=== PATIENT | female | born 1990 | race Caucasian/White ===

== ENCOUNTER 2021-05-23 07:38 | Emergency (ER) | payer OTHER ==
[~2021-05-23] VITALS: Ht 160 cm; Wt 75.0 kg
[2021-05-23 07:50] VITALS: BP 162/104
[2021-05-23] MEDS ORDERED: dexamethasone 4mg tablet PO ONE (08:20)
[2021-05-23] MEDS ORDERED: clindamycin 150mg capsule PO ONE (08:20)
[2021-05-23] MEDS ORDERED: ketorolac trometh inj. 60 MG/2 ML VIAL IM ONE (08:20)
[2021-05-23] MEDS ORDERED: CLIN300C17 PO (09:33)
== END 2021-05-23 09:47 | disposition home or self-care (01) ==
LOC: ER 07:39
DX: J02.9 Acute pharyngitis, unspecified (principal); Z72.89 Other problems related to lifestyle; Z88.0 Allergy status to penicillin; Z79.2 Long term (current) use of antibiotics
CPT/HCPCS: 87081; 87880; 96372; 99283; J1885

== ENCOUNTER 2022-09-07 21:51 | Emergency (ER) | payer SELFPAY ==
[~2022-09-07] VITALS: Ht 160 cm; Wt 66.8 kg
[~2022-09-07 21:51] MED LIST: CLIN300C17 PO
[2022-09-07 22:08] LABS: URINE HCG NEGATIVE (NEG)
[2022-09-07 22:11] LABS: CLARITY,URINE SLIGHTLY CLOUDY (Clear); GLUCOSE, URINE NEGATIVE (Neg); KETONES,URINE NEGATIVE (Neg); LEUKOCYTE ESTERASE ,URINE MODERATE (Neg); NITRITES, URINE POSITIVE (Neg); OCCULT BLOOD,URINE MODERATE (Neg); PROTEIN,URINE 100 mg/dl (Neg); UROBILINOGEN,URINE 0.2 E.U/dL (0.2-1.0)
[2022-09-07 22:13] LABS: COLOR,URINE DARK YELLOW (Yellow); UA COLLECTION TYPE CLN CATCH MIDSTREAM
[2022-09-07] MEDS ORDERED: ketorolac tromethamine 15mg/ml inj. IV ONE (22:15)
[2022-09-07] MEDS ORDERED: morphine 4 MG/ML inj SYRINge IV ONE (22:15)
[2022-09-07] MEDS ORDERED: ondansetron/PF 4mg/2ml inj IV ONE (22:15)
[2022-09-07 22:18] LABS: WBC,URINE 30-50 /HPF (0-4)
[2022-09-07 22:19] LABS: RBC,URINE 20-50 /HPF (0-2)
[2022-09-07 22:20] LABS: BACTERIA,URINE 2+ /HPF (Neg); MUCUS STRANDS FEW /LPF (Neg); SQUAMOUS EPITHELIAL CELL,UR FEW /LPF (FEW); TRANSITIONAL EPI CELLS,URINE FEW /HPF; WBC CLUMPS,URINE MODERATE /HPF (NEGATIVE)
[2022-09-07 22:24] LABS: BASOPHILS % (AUTO) 0.4 % (0-1); EOSINOPHILS # (AUTO) 0.1 X10'3 (0-0.9); EOSINOPHILS % (AUTO) 1.1 % (0-6); HEMATOCRIT 33.3 % (35.0-45.0); HEMOGLOBIN 10.8 g/dl (12.0-16.0); LYMPHOCYTES # (AUTO) 2.4 X10'3 (1.1-4.8); LYMPHOCYTES % (AUTO) 29.4 % (21-51); MEAN CORPUSCULAR HEMOGLOBIN 25.7 PG (27.0-31.0); MEAN CORPUSCULAR HGB CONC 32.3 g/dL (33.0-36.5); MEAN CORPUSCULAR VOLUME 79.4 FL (78-98); MEAN PLATELET VOLUME 5.9 FL (7.4-10.4); MONOCYTES # (AUTO) 0.6 X10'3 (0-0.9); MONOCYTES % (AUTO) 7.3 % (2-12); NEUTROPHILS # (AUTO) 5.1 X10'3 (1.8-7.7); NEUTROPHILS % (AUTO) 61.8 % (42-75); PLATELET COUNT 383 X10'3 (140-440); RED BLOOD COUNT 4.19 X10'6 (4.20-5.60); RED CELL DISTRIBUTION WIDTH 16.9 % (11.5-14.5); WHITE BLOOD COUNT 8.3 X10'3 (4.5-11.0)
[2022-09-07 22:33] LABS: ALANINE AMINOTRANSFERASE 37 U/L (12-78); ALBUMIN 4.4 G/DL (3.4-5.0); ALBUMIN/GLOBULIN RATIO 1.3 (1.1-1.5); ALKALINE PHOSPHATASE 75 IU/L (46-116); ANION GAP 6 (8-16); ASPARTATE AMINO TRANSFERASE 20 U/L (10-37); BILIRUBIN,TOTAL 0.2 MG/DL (0.1-1.0); BLOOD UREA NITROGEN 20 MG/DL (7-18); BUN/CREATININE RATIO 20.2 (10.0-20.0); CALCIUM 9.1 MG/DL (8.5-10.1); CHLORIDE 102 MMOL/L (99-107); CREATININE 0.99 MG/DL (0.40-0.90); GLUCOSE 92 MG/DL (70-104); LIPASE 95 U/L (73-393); POTASSIUM 3.5 MMOL/L (3.5-5.1); SODIUM 137 MMOL/L (135-145); TOTAL CARBON DIOXIDE 29.5 MMOL/L (24-32); TOTAL PROTEIN 7.8 G/DL (6.4-8.2); eGFR 65 ML/MIN
[2022-09-07] MEDS ORDERED: CefTRIAXone/D5W-Rocephin 1gm 50 ML IV ONE (22:45)
[2022-09-07 23:02] VITALS: BP 125/77
[2022-09-07] MEDS ORDERED: IBUP-1984 PO (23:17)
[2022-09-07] MEDS ORDERED: HYDR-3965 PO (23:17)
[2022-09-07] MEDS ORDERED: SULF1TAB45 PO (23:17)
[2022-09-07] MEDS ORDERED: ONDA4TAB12 PO (23:17)
== END 2022-09-08 00:01 | disposition home or self-care (01) ==
LOC: ER 21:52
DX: N10 Acute pyelonephritis (principal); Z88.0 Allergy status to penicillin; Z79.899 Other long term (current) drug therapy; Z79.1 Long term (current) use of non-steroidal anti-inflammatories (NSAID)
CPT/HCPCS: 36415; 80053; 81001; 81025; 83690; 85025; 87077; 87088; 87186; 96365; 96375; 99284; J0696; J1885; J2270; J2405

== ENCOUNTER 2023-08-30 18:45 | Emergency (ER) | payer BC ==
[~2023-08-30] VITALS: Ht 160 cm; Wt 69.0 kg
[~2023-08-30 18:45] MED LIST changes: +ONDA4TAB12 PO
[2023-08-30 19:42] LABS: BASOPHILS % (AUTO) 0.4 % (0-1); EOSINOPHILS # (AUTO) 0.1 X10'3 (0-0.9); HEMATOCRIT 30.8 % (35.0-45.0); HEMOGLOBIN 10.2 g/dl (12.0-16.0); LYMPHOCYTES # (AUTO) 1.7 X10'3 (1.1-4.8); MEAN CORPUSCULAR VOLUME 75.6 FL (78-98); MONOCYTES # (AUTO) 0.5 X10'3 (0-0.9); MONOCYTES % (AUTO) 6.9 % (2-12); NEUTROPHILS # (AUTO) 5.6 X10'3 (1.8-7.7); NEUTROPHILS % (AUTO) 70.7 % (42-75); PLATELET COUNT 390 X10'3 (140-440); RED BLOOD COUNT 4.07 X10'6 (4.20-5.60); RED CELL DISTRIBUTION WIDTH 17.4 % (11.5-14.5); WHITE BLOOD COUNT 7.9 X10'3 (4.5-11.0)
[2023-08-30 20:04] LABS: ALBUMIN 4.2 G/DL (3.4-5.0); ANION GAP 7 (8-16); BLOOD UREA NITROGEN 23 MG/DL (7-18); BUN/CREATININE RATIO 27.4 (10.0-20.0); CALCIUM 8.8 MG/DL (8.5-10.1); CHLORIDE 103 MMOL/L (99-107); CREATININE 0.84 MG/DL (0.40-0.90); GLUCOSE 101 MG/DL (70-104); POTASSIUM 3.6 MMOL/L (3.5-5.1); PRO BRAIN NATRIURETIC PEPTIDE < 30 PG/ML (0-125); SODIUM 139 MMOL/L (135-145); TOTAL CARBON DIOXIDE 28.7 MMOL/L (24-32); eCRCL 79 ML/MIN; eGFR 78 ML/MIN
[2023-08-30 20:51] LABS: LIPASE 38 U/L (16-77)
[2023-08-30] MEDS: ketorolac tromethamine 15mg/ml inj. IV ONE (21:15)
[2023-08-30 22:04] LABS: D-DIMER 0.25 MG/L FEU (0-0.50)
[2023-08-30 22:23] LABS: URINE HCG NEGATIVE (NEG)
[2023-08-30 23:11] VITALS: BP 101/57; PULSE 68; RESP 16; TEMP 98; O2SAT 99
== END 2023-08-30 23:13 | disposition home or self-care (01) ==
LOC: ER 18:46
DX: R07.89 Other chest pain (principal); Z72.89 Other problems related to lifestyle; Z88.0 Allergy status to penicillin
CPT/HCPCS: 36415; 71045; 80048; 81025; 83690; 83880; 84484; 85025; 85379; 93005; 96374; 99285; J1885

== ENCOUNTER 2023-11-24 10:57 | Emergency (ER) | payer BC ==
[~2023-11-24] VITALS: Ht 160 cm; Wt 58.5 kg
[2023-11-24] MEDS ORDERED: dexamethasone sod phosphate 10mg/ml inj IM STA (11:10)
[2023-11-24 11:36] LABS: BILIRUBIN,URINE SMALL (Neg); CLARITY,URINE CLOUDY (Clear); GLUCOSE, URINE NEGATIVE (Neg); KETONES,URINE TRACE mg/dl (Neg); LEUKOCYTE ESTERASE ,URINE TRACE (Neg); NITRITES, URINE NEGATIVE (Neg); OCCULT BLOOD,URINE SMALL (Neg); PROTEIN,URINE TRACE mg/dl (Neg); UROBILINOGEN,URINE 0.2 E.U/dL (0.2-1.0)
[2023-11-24 11:40] LABS: COLOR,URINE DARK YELLOW (Yellow); UA COLLECTION TYPE CLN CATCH MIDSTREAM
[2023-11-24 11:43] LABS: BACTERIA,URINE 2+ /HPF (Neg); MUCUS STRANDS MANY /LPF (Neg); RBC,URINE 0-2 /HPF (0-2); SQUAMOUS EPITHELIAL CELL,UR MANY /LPF (FEW); WBC,URINE 30-50 /HPF (0-4)
[2023-11-24] MEDS ORDERED: PHEN-824 PO (11:58)
[2023-11-24] MEDS: dexamethasone sod phosphate 10mg/ml inj PO STA (12:16)
[2023-11-24] MEDS: famotidine 20mg tablet PO ONE (12:17)
[2023-11-24] MEDS: diphenhydrAMINE 50 mg/ml inj IM ONE (12:18)
[2023-11-24] MEDS: CefTRIAXone 1000mg IM Kit (w/lidocaine diluent) IM ONE (12:19)
[2023-11-24 12:24] VITALS: BP 117/80; PULSE 90; RESP 15; TEMP 98.5; O2SAT 98
== END 2023-11-24 12:26 | disposition home or self-care (01) ==
LOC: ER 10:58
DX: N39.0 Urinary tract infection, site not specified (principal); T78.49XA Other allergy, initial encounter; Z88.0 Allergy status to penicillin; X58.XXXA Exposure to other specified factors, initial encounter
CPT/HCPCS: 81001; 96372; 99284; J0696; J1100; J1200